=== PATIENT | female | born 1955 | race American Indian/Alaskan Native ===

== ENCOUNTER 2022-03-31 14:32 | Emergency (ER) | payer OTHER, MEDICARE | END 2022-03-31 17:00 | disposition home or self-care (01) | LOC: JD.ED 14:32 → SUPCPDRO 14:32 → JD.ED 17:00 | DX: R07.89 Other chest pain (principal); I10 Essential (primary) hypertension; Z79.899 Other long term (current) drug therapy; Z87.891 Personal history of nicotine dependence | CPT/HCPCS: 36415; 71045; 71045-26; 80053; 84484; 85025; 85379; 93005; 93010; 99283; 99285 ==